=== PATIENT | female | born 1980 | race Caucasian/White ===

== ENCOUNTER 2016-09-11 18:36 | Emergency (ER) | payer OTHER ==
[2016-09-11] MEDS ORDERED: SODIUM CHLORIDE 1,000 ML IV STA ×2 (18:57→22:23)
[2016-09-11] MEDS ORDERED: FAMOTIDINE 20 MG/50 ML IVPB 50 ML IVPB ONE ×2 (18:58→19:52)
[2016-09-11] MEDS ORDERED: ONDANSETRON 4 MG/2 ML VIAL IVPUSH ONE ×2 (18:58→22:54)
--- NOTE | 2016-09-11 19:26 | PDOC ---
History of Present Illness - General History Source: Patient, Old Records Exam Limitations: No Limitations - History of Present Illness Initial Comments: 09/11/16 22:05 The patient is a 36 year old female, with a significant past medical history of asthma, HTN, pancreatitis, obesity s/p gastric sleeve and s/p recent cholecystectomy, who presents to the emergency department with lower abdominal pain and lower back pain for the past week. She reports that her abdominal pain is worst right after eating and reports associated nausea, vomiting and diarrhea. She reports 2 days of nausea/vomiting and 3-4 episodes of diarrhea per day for the past couple of days. She reports that her lower back pain is constant.The patient reports a recent cholecystectomy (08/07/2016) and states that since her surgery, she has not felt well. She reports a decreased appetite since her cholecystectomy and reports that she hasn't eaten today. The patient denies any fever, chills, constipation or dysuria. Boyfriend, daughter are with the patient in the ED. Allergies: NKDA. Past Surgical History: Gastric Sleeve; Cholecystectomy Social History: Non smoker. Denies alcohol or drug use. PCP: Dr. Marie Surgeon: Dr. Carrero <Sindy Pierre - Last Filed: 09/12/16 02:12> <Brice Singh - Last Filed: 09/12/16 02:31> - General Chief Complaint: Shortness of Breath Stated Complaint: SOB Time Seen by Provider: 09/11/16 18:39 Past History <Sindy Pierre - Last Filed: 09/12/16 02:12> - Past Medical History Anemia: No Asthma: Yes Cancer: No Cardiac Disorders: No CVA: No COPD: No CHF: No Dementia: No Diabetes: No GI Disorders: Yes (PANCREATITIS) Disorders: No HTN: Yes Hypercholesterolemia: No Liver Disease: No Seizures: No Thyroid Disease: No - Surgical History Abdominal Surgery: Yes (Gastric Sleeve . Stomach hematoma) Appendectomy: No Cardiac Surgery: No Cholecystectomy: No Lung Surgery: No Neurologic Surgery: No Orthopedic Surgery: No - Psycho/Social/Smoking Cessation Hx Anxiety: No Suicidal Ideation: No Smoking Status: No Smoking History: Never smoked Have you smoked in the past 12 months: No Number of Cigarettes Smoked Daily: 0 Hx Alcohol Use: No Drug/Substance Use Hx: No Substance Use Type: None Hx Substance Use Treatment: No <Brice Singh - Last Filed: 09/12/16 02:31> - Past Medical History Allergies/Adverse Reactions: Allergies Allergy/AdvReac Type Severity Reaction Status Date / Time egg Allergy Severe Itching Verified 09/11/16 20:23 peanut Allergy Severe ANAPHYLAXIS Verified 09/11/16 20:23 shellfish derived Allergy Severe ANAPHYLAXIS Verified 09/11/16 20:23 tree nut Allergy Severe Verified 09/11/16 20:23 almond oil Allergy Unknown Verified 09/11/16 20:23 apple Allergy Unknown Itching Verified 09/11/16 20:23 banana Allergy Unknown Itching Verified 09/11/16 20:23 melon Allergy Unknown Verified 09/11/16 20:23 sesame seed Allergy Unknown Hives Verified 09/11/16 20:23 strawberry Allergy Unknown Itching Verified 09/11/16 20:23 tomato Allergy Unknown Verified 09/11/16 20:23 wheat Allergy Unknown Verified 09/11/16 20:23 No Known Drug Allergies Allergy Verified 09/11/16 20:23 jimenez Allergy Unknown Itching Uncoded 09/11/16 20:23 Home Medications: Ambulatory Orders Famotidine [Pepcid -] 20 mg PO BID #60 tablet 04/07/16 Oxycodone HCl/Acetaminophen [Percocet 5-325 mg Tablet] 1 - 2 tab PO Q6H #28 tab MDD 4 08/07/16 Oxycodone HCl/Acetaminophen [Percocet 5-325 mg Tablet] 1 tab PO Q6H #20 tablet MDD 4 09/12/16 Review of Systems - Review of Systems Able to Perform ROS?: Yes Comments:: 09/11/16 20:20 CONSTITUTIONAL: +Decreased appetite. No fever, no chills, no fatigue EYES: No visual changes ENT: No ear pain, no sore throat CARDIOVASCULAR: No chest pain, no palpitations RESPIRATORY: No cough, no SOB GI: +Abdominal pain, nausea, vomiting, diarrhea. No constipation. GENITOURINARY: No dysuria, no frequency, no hematuria MUSCULOSKELETAL: +Back pain. No joint pain, no myalgias SKIN: No rash NEURO: No headache <FreestoneSindy rios - Last Filed: 09/12/16 02:12> *Physical Exam - Vital Signs Last Vital Signs Temp Pulse Resp BP Pulse Ox 98.9 F 97 H 24 119/49 99 09/11/16 18:44 09/11/16 18:44 09/11/16 18:44 09/11/16 18:44 09/11/16 18:44 - Physical Exam Comments: 09/11/16 21:57 CONSTITUTIONAL: Well-appearing; well-nourished; in no apparent distress. HEAD: Normocephalic; atraumatic. EYES: PERRL; EOM intact. No scleral icterus. Conjunctiva are pink. ENMT: Dry mucous membranes. External appears normal; normal oropharynx. NECK: Supple; non-tender; no cervical lymphadenopathy. CARD: Normal S1, S2; no murmurs, rubs, or gallops. RESP: Normal chest excursion with respiration; breath sounds clear and equal bilaterally; no wheezes, rhonchi, or rales. ABD: Epigastric and LUQ tenderness. Mild periumbilical tenderness. No guarding, no rebound. Soft, non-distended; no palpable organomegaly, no palpable hernias. EXT: Normal ROM in all four extremities; non-tender to palpation; distal pulses intact. SKIN: Warm, dry, no rash. NEURO: No focal neurological deficiencies. <Sindy Pierre - Last Filed: 09/12/16 02:12> - Vital Signs Last Vital Signs Temp Pulse Resp BP Pulse Ox 98.9 F 97 H 24 119/49 99 09/11/16 18:44 09/11/16 18:44 09/11/16 18:44 09/11/16 18:44 09/11/16 18:44 <Brice Singh - Last Filed: 09/12/16 02:31> Heart Score/ECG Review #1 ECG reviewed & interpreted by me at: 20:02 (Vent Rate: 81 bpm. Normal sinus rhythm with sinus arrhythmia.) <Sindy Pierre - Last Filed: 09/12/16 02:12> ED Treatment Course - LABORATORY CBC & Chemistry Diagram: 09/11/16 19:25 09/11/16 19:25 - ADDITIONAL ORDERS Additional order review: Laboratory Results 09/11/16 19:25 Urine HCG, Qual Negative <Sindy Pierre - Last Filed: 09/12/16 02:12> - LABORATORY CBC & Chemistry Diagram: 09/11/16 19:25 09/11/16 19:25 <Brice Singh - Last Filed: 09/12/16 02:31> Medical Decision Making - Medical Decision Making 09/12/16 01:34 EXAM: CT/ABDOMEN & PELVIS W/O CONTR Reviewed By: Dr. Lloyd Pza IMPRESSION: Interval cholecystectomy. Trace R >L pleural effusion. No acute abdominal pelvic abnormality since comparison exam. Remainder of the findings as described. Called Dr. Brayan Carrero at at 02:00. Awaiting callback. <Sindy Pierre - Last Filed: 09/12/16 02:12> - Medical Decision Making 09/11/16 22:13 Patient is a 36-year-old female with history of gastric sleeve and cholecystectomy who presents with epigastric and left upper quadrant abdominal pain, vomiting and numerous episodes of loose watery stools. Differential diagnoses includes dumping syndrome versus gastroenteritis versus colitis. Will aggressively hydrate, we'll administer antiemetics and H2 blockers. We'll administer parenteral pain medication; will obtain CT that and pelvis with by mouth contrast. Will reassess. 09/12/16 01:55 Patient reassessed. Patient is awake and alert, tolerates by mouth. Patient continues to complain of mild abdominal and moderate lower back pain. CBC/CMP/ UA within normal limit. CT of abdomen and pelvis with by mouth contrast reveals trace bilateral pleural effusions, improving stranding near the suture margins of the gastric sleeve small left paraovarian cyst which is unchanged from previous, small right ovarian cyst which is also unchanged and trace free pelvic fluid which appears within normal limits. Patient will be discharged with Nexium which has been provided by Dr. Carrero of surgery, Reglan and Percocet with GI follow-up. <Brice Singh - Last Filed: 09/12/16 02:31> *DC/Admit/Observation/Transfer - Attestations Scribe Attestion: 09/11/16 19:59 Documentation prepared by Sindy Pierre, acting as medical center director for Brice Singh MD. <Sindy Pierre - Last Filed: 09/12/16 02:12> - Attestations Physician Attestion: 09/11/16 22:09 The documentation was prepared by the scribe under my direct supervision. I have reviewed the documentation which correctly represents the findings, medical decision-making and critical action taken by me. <Brice Singh - Last Filed: 09/12/16 02:31> Diagnosis at time of Disposition: Nausea & vomiting Qualifiers: Vomiting type: unspecified Vomiting Intractability: non-intractable Qualified Code(s): R11.2 - Nausea with vomiting, unspecified Abdominal pain Qualifiers: Abdominal location: generalized Qualified Code(s): R10.84 - Generalized abdominal pain Back pain Qualifiers: Back pain location: low back pain Chronicity: chronic Back pain laterality: unspecified Sciatica presence: without sciatica Qualified Code(s): M54.5 - Low back pain; G89.29 - Other chronic pain - Discharge Dispostion Disposition: HOME Condition at time of disposition: Stable - Referrals Referrals: Slim Marie MD [Primary Care Provider] - Siddharth Humphrey MD [Staff Physician] - Brayan Carrero MD [Staff Physician] - - Patient Instructions Printed Discharge Instructions: DI for Low Back Pain, DI for Abdominal Pain- Adult, Nausea and Vomiting-Adult
[2016-09-11 19:30] VITALS: TEMP 98.9; BMI 29.9
[2016-09-11] MEDS ORDERED: HYDROmorphone HCL CARPU-JECT 1 MG/1 ML DISP.SYRIN IVPUSH ONE (19:38)
[2016-09-11] MEDS ORDERED: HYDROmorphone HCL CARPU-JECT 1 MG/1 ML DISP.SYRIN ONE ×2 (19:51→22:12)
[2016-09-11] MEDS ORDERED: ONDANSETRON 4 MG/2 ML VIAL ONE ×2 (19:52→22:55)
[2016-09-11 19:57] LABS: URINE APPEARANCE SLCLOUDY; URINE BILIRUBIN NEGATIVE (NEGATIVE); URINE BLOOD NEGATIVE (NEGATIVE); URINE COLOR DKYELLOW; URINE GLUCOSE (UA) NEGATIVE (NEGATIVE); URINE KETONE 1+ (NEGATIVE); URINE LEUK ESTERASE NEGATIVE (NEGATIVE); URINE NITRITE NEGATIVE (NEGATIVE); URINE PROTEIN NEGATIVE (NEGATIVE); URINE UROBILINOGEN NEGATIVE E.U./dl (0.2-1.0)
[2016-09-11 20:13] LABS: INR 1.19 (0.82-1.09); PROTHROMBIN TIME (PATIENT) 13.1 SEC (9.98-11.88)
[2016-09-11 20:40] LABS: ALBUMIN 4.2 g/dl (3.4-5.0); ANION GAP 8 (8-16); BILIRUBIN,TOTAL 0.4 mg/dL (0.2-1.0); CALCIUM 9.4 mg/dL (8.5-10.1); CO2 28 mmol/L (21-32); CREATININE 0.7 mg/dL (0.55-1.02); GLUCOSE,RANDOM 76 mg/dL (74-106); SGOT/AST 14 U/L (15-37); SGPT/ALT 22 U/L (12-78); TOT PROT 7.5 g/dl (6.4-8.2)
[2016-09-11 20:41] LABS: ALK PHOS 54 U/L (45-117)
[2016-09-11 21:06] LABS: BASOPHIL 0.4 % (0-2.0); EOSINOPHIL 1.6 % (0-4.5); MEAN CELL VOLUME 87.5 fl (80-96); MEAN PLT VOLUME 8.7 fl (7.5-11.1); NEUTROPHILS 52.5 % (42.8-82.8); PLATELET COUNT 416 K/MM3 (134-434); RDW 13.7 % (11.6-15.6); WHITE BLOOD COUNT 8.5 K/mm3 (4.0-10.0)
[2016-09-11] MEDS ORDERED: HYDROmorphone HCL CARPU-JECT 1 MG/1 ML DISP.SYRIN IVPB ONE (22:22)
[2016-09-12 00:48] VITALS: BP 117/68; PULSE 77
--- NOTE | 2016-09-12 11:43 | EKG ---
Test Reason : Blood Pressure : / mmHG Vent. Rate : 081 BPM Atrial Rate : 081 BPM P-R Int : 156 ms QRS Dur : 080 ms QT Int : 392 ms P-R-T Axes : 048 042 017 degrees QTc Int : 455 ms POOR DATA QUALITY, INTERPRETATION MAY BE ADVERSELY AFFECTED NORMAL SINUS RHYTHM WITH SINUS ARRHYTHMIA NORMAL ECG WHEN COMPARED WITH ECG OF 02-JUN-2016 15:27, NO SIGNIFICANT CHANGE WAS FOUND Confirmed by JYOTI TUBBS MD ([id number]) on 09/12/2016 11:42:44 AM Referred By: Confirmed By:JYOTI TUBBS MD
== END 2016-09-12 03:08 | disposition home or self-care (01) ==
LOC: JER 18:36
PROC: 3E033NZ Introduction of Analgesics, Hypnotics, Sedatives into Peripheral Vein, Percutaneous Approach (ICD-10-PCS; principal; 2016-09-11)
PROC: 3E033GC Introduction of Other Therapeutic Substance into Peripheral Vein, Percutaneous Approach (ICD-10-PCS; 2016-09-11)
DX: R10.84 Generalized abdominal pain (principal); G89.29 Other chronic pain; Z98.84 Bariatric surgery status
CPT/HCPCS: 36415; 74176-TC; 80053; 81003; 83690; 83735; 84703; 85025; 85610; 87086; 93005; 93010; 99284-25

== ENCOUNTER 2016-09-22 07:23 | Day surgery (SDC) | payer OTHER ==
[2016-09-19 14:24] VITALS: BMI 29.9
[2016-09-22] MEDS ORDERED: LIDOCAINE HCL/PF 1% SDV 5ML VIAL ONE (08:44)
[2016-09-22] MEDS ORDERED: PROPOFOL 20 ML ONE (08:44)
[2016-09-22 10:01] VITALS: TEMP 98.4
[2016-09-22 10:03] VITALS: BP 126/73
[2016-09-22 11:08] LABS: INR 1.22 (0.82-1.09); PROTHROMBIN TIME (PATIENT) 13.5 SEC (9.98-11.88)
[2016-09-22 11:42] VITALS: PULSE 72
--- NOTE | 2016-09-23 12:15 | PATH ---
Surgical Pathology Report Patient Name: ALEX MILLS [facility]. Rec. #: [id number] /Age/Gender: 1980 (Age: 36) / F Account: [id number] Location: U-ENDOSCOPY Taken: 09/22/2016 Received: 09/22/2016 Reported: 09/23/2016 Physicians: Siddharth Humphrey M.D. Specimen(s) Received A: BX DUODENUM B: BX GE JUNCTION Clinical History Postoperative abdominal pain Hiatal hernia, scalloped folds, GERD with esophagitis, rule out duodenal atrophy Final Diagnosis A. DUODENUM, BIOPSY: DUODENAL MUCOSA WITH NO PATHOLOGIC CHANGES. NO HISTOLOGIC EVIDENCE OF GLUTEN SENSITIVE ENTEROPATHY (CELIAC SPRUE) IDENTIFIED. B. GE JUNCTION, BIOPSY: SQUAMOUS AND GASTRIC MUCOSA WITH ACUTE AND CHRONIC INFLAMMATION. NO INTESTINAL METAPLASIA IDENTIFIED (NO LITTLE'S IDENTIFIED). Electronically Signed Jackson Coronel M.D. Gross Description A. Received in formalin, labeled "biopsy duodenum" is a hernandez, irregular portion of soft tissue measuring 0.4 cm. in greatest dimension. The specimen is submitted in toto in one cassette. B. Received in formalin, labeled "biopsy GE junction" is a hernandez, irregular portion of soft tissue measuring 0.3 cm. in greatest dimension. The specimen is submitted in toto in one cassette. 09/22/201609/22/2016
== END 2016-09-22 11:00 | disposition home or self-care (01) ==
LOC: JASU-ENDO 07:23
PROVIDERS: ATTEND Internal Medicine Gastroenterology
PROC: 0DB38ZX Excision of Lower Esophagus, Via Natural or Artificial Opening Endoscopic, Diagnostic (ICD-10-PCS; principal; 2016-09-22 08:30)
DX: R10.13 Epigastric pain (principal); R10.84 Generalized abdominal pain; Z98.84 Bariatric surgery status; K44.9 Diaphragmatic hernia without obstruction or gangrene
CPT/HCPCS: 36415; 84703; 85610; 88305-TC

== ENCOUNTER 2016-11-16 16:38 | Emergency (ER) | payer OTHER ==
[2016-11-16 16:44] VITALS: TEMP 98.1; BMI 30.2
[2016-11-16] MEDS ORDERED: morphine CARPU-JECT 4 MG/1 ML DISP.SYRIN IVPUSH ONE (17:43)
[2016-11-16] MEDS ORDERED: ONDANSETRON 4 MG/2 ML VIAL IVPB ONE (17:43)
[2016-11-16] MEDS ORDERED: SODIUM CHLORIDE 1,000 ML IV STA (17:43)
[2016-11-16 17:49] LABS: BASOPHIL 0.3 % (0-2.0); EOSINOPHIL 0.3 % (0-4.5); MCH 29.3 pg (25.7-33.7); MCHC 33.3 g/dl (32.0-36.0); MEAN CELL VOLUME 87.9 fl (80-96); MEAN PLT VOLUME 7.8 fl (7.5-11.1); NEUTROPHILS 75.6 % (42.8-82.8); PLATELET COUNT 380 K/MM3 (134-434); RDW 13.5 % (11.6-15.6); WHITE BLOOD COUNT 9.3 K/mm3 (4.0-10.0)
[2016-11-16] MEDS ORDERED: METOCLOPRAMIDE HCL INJECTION 10 MG/2 ML VIAL ONE (17:51)
[2016-11-16] MEDS ORDERED: KETOROLAC TROMETHAMINE 30 MG/1 ML VIAL ONE (17:51)
[2016-11-16 17:56] LABS: URINE APPEARANCE CLOUDY; URINE BILIRUBIN NEGATIVE (NEGATIVE); URINE BLOOD NEGATIVE (NEGATIVE); URINE COLOR YELLOW; URINE GLUCOSE (UA) NEGATIVE (NEGATIVE); URINE KETONE NEGATIVE (NEGATIVE); URINE LEUK ESTERASE NEGATIVE (NEGATIVE); URINE NITRITE NEGATIVE (NEGATIVE); URINE PROTEIN NEGATIVE (NEGATIVE); URINE UROBILINOGEN NEGATIVE E.U./dl (0.2-1.0)
--- NOTE | 2016-11-16 17:57 | PDOC ---
History of Present Illness <Isabelle Mckinley - Last Filed: 11/16/16 21:34> - General History Source: Patient Exam Limitations: No Limitations - History of Present Illness Initial Comments: 11/16/16 18:22 My chief complaint: Severe headache right sided temporal area, nausea, vomiting , diarrhea and generalized body aches today History of present illness: Patient is a 36-year-old female with a history of asthma, hypertension and spent controlled since having a gastric sleeve 8 2015, history of pancreatitis, and hiatal hernia, and herniated lumbar disc. Patient reports that she took cyclobenzaprine for the first time and lower back pain. Patient reports that today she started to have a headache that was left temporal area that I transfer to the right temporal area in his throat presently and is currently a 10 out of 10 throbbing & pounding. Reports that she 's had multiple episodes of vomiting today up to 7 times and also diarrhea light brown at least 3 times and generalized body aches. Patient reports having slight nausea presently, no abdominal pain presently. Reports that she is up-to- date with immunizations did not have influenza vaccine due to allergies to eggs. Patient reports that her daughter had been sick recently with uvular swelling that was not strep in nature. He has had no recent travel. Pt. has a migraine for 2 years and reports that she never has diarrhea with migraine just vomiting. 11/16/16 18:31 11/16/16 19:16 Timing/Duration: getting worse Severity: severe (headache rt. temporal area ) Associated Symptoms: reports: headaches (right temporal ), nausea/vomiting ( multiple times today along with diarrhea) <Poly Roman - Last Filed: 11/18/16 19:49> - General Chief Complaint: Vomiting/Diarrhea Stated Complaint: HEADACHE VOMITING/DIARRHEA Time Seen by Provider: 11/16/16 17:34 Past History <Isabelle Mckinley - Last Filed: 11/16/16 21:34> - Past Medical History Anemia: No Asthma: Yes (NO RECENT ATTACK) Cancer: No Cardiac Disorders: No CVA: No COPD: No CHF: No Dementia: No Diabetes: No GI Disorders: Yes (PANCREATITIS) Disorders: No HTN: Yes (UNDER CONTROL POST SURGERY) Hypercholesterolemia: No Liver Disease: No Seizures: No Thyroid Disease: No - Surgical History Abdominal Surgery: Yes (Gastric Sleeve . Stomach hematoma) Appendectomy: No Cardiac Surgery: No Cholecystectomy: Yes Lung Surgery: No Neurologic Surgery: No Orthopedic Surgery: No - Psycho/Social/Smoking Cessation Hx Anxiety: No Suicidal Ideation: No Smoking Status: No Smoking History: Never smoked Have you smoked in the past 12 months: No Number of Cigarettes Smoked Daily: 0 Hx Alcohol Use: No Drug/Substance Use Hx: No Substance Use Type: None Hx Substance Use Treatment: No <Poly Roman - Last Filed: 11/18/16 19:49> - Past Medical History Allergies/Adverse Reactions: Allergies Allergy/AdvReac Type Severity Reaction Status Date / Time egg Allergy Severe Itching Verified 11/16/16 16:40 peanut Allergy Severe ANAPHYLAXIS Verified 11/16/16 16:40 shellfish derived Allergy Severe ANAPHYLAXIS Verified 11/16/16 16:40 tree nut Allergy Severe Verified 11/16/16 16:40 almond oil Allergy Unknown Verified 11/16/16 16:40 apple Allergy Unknown Itching Verified 11/16/16 16:40 banana Allergy Unknown Itching Verified 11/16/16 16:40 melon Allergy Unknown Verified 11/16/16 16:40 sesame seed Allergy Unknown Hives Verified 11/16/16 16:40 strawberry Allergy Unknown Itching Verified 11/16/16 16:40 tomato Allergy Unknown Verified 11/16/16 16:40 wheat Allergy Unknown Verified 11/16/16 16:40 NSAIDS (Non-Steroidal AdvReac Severe Verified 11/16/16 16:42 Anti-Inflamma jimenez Allergy Unknown Itching Uncoded 11/16/16 16:40 Home Medications: Ambulatory Orders Calcium Carbonate/Vitamin D3 [Calcium 500 + Vit D Caplet] 1 each PO DAILY Cholecalciferol (Vitamin D3) [Vitamin D -] 50,000 unit PO WEEKLY 09/19/16 Esomeprazole Magnesium [Nexium 24Hr] 20 mg PO DAILY 09/19/16 Ferrous Gluconate [Iron] 256 mg PO DAILY 09/19/16 Metoclopramide HCl [Reglan] 10 mg PO DAILY 09/19/16 Multivitamin with Minerals [Icaps Plus] 1 each PO DAILY 09/19/16 Vitamin B Complex 1 each PO DAILY 09/19/16 Butalbit/Acetamin/Caff/Codeine [Fioricet-Cod 36-314-61-30 Cap] 1 - 2 each PO Q4H PRN #30 capsule MDD 6 capsules 11/16/16 Ondansetron [Zofran Odt -] 4 mg SL Q6H PRN #20 od.tablet 11/16/16 Review of Systems - Review of Systems Able to Perform ROS?: Yes Constitutional: Yes: Loss of Appetite HEENTM: No: Symptoms Reported Respiratory: No: Symptoms reported Cardiac (ROS): No: Symptoms Reported ABD/GI: Yes: Diarrhea (light brown watery up to 3 times), Nausea, Vomiting ( today multiple times up to 7 ) : No: Symptoms Reported Musculoskeletal: Yes: Other (generalized bodyaches n) Integumentary: No: Symptoms Reported Neurological: Yes: Headache (right temporal today now \) <Poly Roman - Last Filed: 11/18/16 19:49> *Physical Exam - Vital Signs Last Vital Signs Temp Pulse Resp BP Pulse Ox 98.1 F 94 H 19 135/90 100 11/16/16 16:40 11/16/16 16:40 11/16/16 16:40 11/16/16 16:40 11/16/16 16:40 <Isabelle Mckinley - Last Filed: 11/16/16 21:34> - Vital Signs Last Vital Signs Temp Pulse Resp BP Pulse Ox 98.1 F 94 H 19 135/90 100 11/16/16 16:40 11/16/16 16:40 11/16/16 16:40 11/16/16 16:40 11/16/16 16:40 - Physical Exam General Appearance: Yes: Appropriately Dressed HEENT: positive: EOMI, GHULAM, Normal ENT Inspection Neck: negative: Lymphadenopathy (R), Lymphadenopathy (L) Respiratory/Chest: positive: Lungs Clear, Normal Breath Sounds. negative: Chest Tender, Respiratory Distress Cardiovascular: positive: Regular Rhythm, Regular Rate, S1, S2 Gastrointestinal/Abdominal: positive: Normal Bowel Sounds. negative: Tender, Soft, Organomegaly, Distended, Guarding, Rebound, Tenderness, Hepatomegaly, Spleenomegaly Integumentary: positive: Normal Color Neurologic: positive: ediphone operator II-XII NML intact (grossly intact), Fully Oriented, Alert, Normal Response, Respond to painful stimul, Responsive. negative: Numbness, Sensory Deficit <Poly Roman - Last Filed: 11/18/16 19:49> ED Treatment Course - LABORATORY CBC & Chemistry Diagram: 11/16/16 17:40 11/16/16 17:40 - ADDITIONAL ORDERS Additional order review: Laboratory Results 11/16/16 11/16/16 11/16/16 17:45 17:40 17:40 INR 1.12 Sodium 139 Potassium 4.7 Chloride 102 Carbon Dioxide 28 Anion Gap 9 BUN 7 D Creatinine 0.6 Creat Clearance w eGFR > 60 Random Glucose 94 D Calcium 9.3 Total Bilirubin 0.3 D AST 13 L ALT 13 D Alkaline Phosphatase 65 D Total Protein 7.4 Albumin 3.9 Lipase 73 Urine Color Yellow Urine Appearance Cloudy Urine pH 7.0 D Ur Specific [place] 1.018 Urine Protein Negative Urine Glucose (UA) Negative Urine Ketones Negative Urine Blood Negative Urine Nitrite Negative Urine Bilirubin Negative Urine Urobilinogen Negative Ur Leukocyte Esterase Negative Urine HCG, Qual Negative 11/16/16 18:00 Influenza Types A,B Antigen (CHANTELL) - Final Nasopharyngeal Swab - Final 11/16/16 17:40 RBC 4.51 MCV 87.9 MCHC 33.3 RDW 13.5 MPV 7.8 D Neutrophils % 75.6 D Lymphocytes % 18.0 D Monocytes % 5.8 Eosinophils % 0.3 D Basophils % 0.3 - Medications Given in the ED: ED Medications Discontinued Medications Generic Name Dose Route Start Last Admin Trade Name Toyq PRN Reason Stop Dose Admin Sodium Chloride 1,000 mls @ 1,000 mls/hr 11/16/16 17:43 11/16/16 18:10 Normal Saline - IV 11/16/16 18:42 1,000 mls/hr ASDIR STA Administration Metoclopramide HCl 10 mg 11/16/16 18:12 11/16/16 18:18 Reglan Injection - IVPB 11/16/16 18:13 10 mg ONCE ONE Administration Morphine Sulfate 4 mg 11/16/16 17:43 11/16/16 18:15 Morphine Injection - IVPUSH 11/16/16 17:44 4 mg ONCE ONE Administration Ondansetron HCl 4 mg 11/16/16 17:43 11/16/16 18:10 Zofran Injection IVPB 11/16/16 17:44 4 mg ONCE ONE Administration <Isabelle Mckinley D - Last Filed: 11/16/16 21:34> - LABORATORY CBC & Chemistry Diagram: 11/16/16 17:40 11/16/16 17:40 - ADDITIONAL ORDERS Additional order review: 11/16/16 17:40 RBC 4.51 MCV 87.9 MCHC 33.3 RDW 13.5 MPV 7.8 D Neutrophils % 75.6 D Lymphocytes % 18.0 D Monocytes % 5.8 Eosinophils % 0.3 D Basophils % 0.3 <Poly Roman - Last Filed: 11/18/16 19:49> Medical Decision Making - Medical Decision Making Patient is a 36-year-old female with a history of asthma, hypertension and spent controlled since having a gastric sleeve 8 2015, history of pancreatitis, and hiatal hernia, and herniated lumbar disc. Patient reports that she took cyclobenzaprine for the first time and lower back pain. Patient reports that today she started to have a headache that was left temporal area that I transfer to the right temporal area in his throat presently and is currently a 10 out of 10 throbbing & pounding. Reports that she's had multiple episodes of vomiting today up to 7 times and also diarrhea light brown at least 3 times and generalized body aches. Patient reports having slight nausea presently, no abdominal pain presently. Reports that she is up-to-date with immunizations did not have influenza vaccine due to allergies to eggs. Patient reports that her daughter had been sick recently with uvular swelling that was not strep in nature. He has had no recent travel. Differential migraine r/o cranial abnormality r/o influenza A or B 11/16/16 18:14 PLAN: cbc with diff cmp lipase ua urine hcg negative morphine 4 mg iv PB reglan 10 mg IVBPB zofran [address] of head with out contrast influenza A or B rapid negative Laboratory Tests 11/16/16 11/16/16 17:40 17:45 WBC 9.3 RBC 4.51 Hgb 13.2 Hct 39.7 MCV 87.9 MCHC 33.3 RDW 13.5 Plt Count 380 MPV 7.8 D Neutrophils % 75.6 D Lymphocytes % 18.0 D Monocytes % 5.8 Eosinophils % 0.3 D Basophils % 0.3 Urine Color Yellow Urine Appearance Cloudy Urine pH 7.0 D Ur Specific [place] 1.018 Urine Protein Negative Urine Glucose (UA) Negative Urine Ketones Negative Urine Blood Negative Urine Nitrite Negative Urine Bilirubin Negative Urine Urobilinogen Negative Ur Leukocyte Esterase Negative Urine HCG, Qual Negative 11/16/16 18:26 11/16/16 18:28 11/16/16 18:29 11/16/16 19:17 Laboratory Tests 11/16/16 11/16/16 17:40 17:40 INR 1.12 Sodium 139 Potassium 4.7 Chloride 102 Carbon Dioxide 28 Anion Gap 9 BUN 7 D Creatinine 0.6 Creat Clearance w eGFR > 60 Random Glucose 94 D Calcium 9.3 Total Bilirubin 0.3 D AST 13 L ALT 13 D Alkaline Phosphatase 65 D Total Protein 7.4 Albumin 3.9 Lipase 73 11/16/16 19:18 11/16/16 19:19 11/16/16 19:19 case signed out to GERRY Mckinley 11/18/16 19:47 11/18/16 19:47 <Poly Roman - Last Filed: 11/18/16 19:49> *DC/Admit/Observation/Transfer - Discharge Dispostion Admit: No <Isabelle Mckinley - Last Filed: 11/16/16 21:34> <Poly Roman - Last Filed: 11/18/16 19:49> Diagnosis at time of Disposition: Migraine headache Qualifiers: Migraine type: without aura Status migrainosus presence: without status migrainosus Intractability: not intractable Qualified Code(s): G43.009 - Migraine without aura, not intractable, without status migrainosus - Discharge Dispostion Disposition: HOME - Prescriptions Prescriptions: Butalbit/Acetamin/Caff/Codeine [Fioricet-Cod 53-895-00-30 Cap] 1 - 2 each PO Q4H PRN #30 capsule MDD 6 capsules PRN Reason: Severe Headache Ondansetron [Zofran Odt -] 4 mg SL Q6H PRN #20 od.tablet PRN Reason: Nausea - Referrals Referrals: Slim Marie MD [Primary Care Provider] - Uzma Calle MD [Staff Physician] - - Patient Instructions Printed Discharge Instructions: Migraine -- Adult, Migraine Headaches ( Alternative Therapy), Migraine Headaches (Alternative Therapy), DI for Migraine Additional Instructions: FOLLOW UP WITH DR. CALLE (NEUROLOGY) THIS WEEK FOR FURTHER EVALUATION. CALL TO SCHEDULE APPOINTMENT. TAKE MEDICATIONS PRESCRIBED. DO NOT DRIVE, DRINK ALCOHOL, OR OPERATE HEAVY MACHINERY WHILE TAKING FIORICET. RETURN IF SYMPTOMS WORSEN, OR ANY OTHER CONCERNS FOR FURTHER EVALUATION. Print Language: SERBIAN - Post Discharge Activity Work/School Note: Back to Work
[2016-11-16] MEDS ORDERED: ONDANSETRON 4 MG/2 ML VIAL ONE (17:59)
[2016-11-16] MEDS ORDERED: morphine CARPU-JECT 4 MG/1 ML DISP.SYRIN ONE (18:11)
[2016-11-16 18:12] LABS: INR 1.12 (0.82-1.09); PROTHROMBIN TIME (PATIENT) 12.4 SEC (9.98-11.88)
[2016-11-16] MEDS ORDERED: METOCLOPRAMIDE HCL INJECTION 10 MG/2 ML VIAL IVPB ONE (18:12)
[2016-11-16 18:19] LABS: ALBUMIN 3.9 g/dl (3.4-5.0); ANION GAP 9 (8-16); BILIRUBIN,TOTAL 0.3 mg/dL (0.2-1.0); CALCIUM 9.3 mg/dL (8.5-10.1); CO2 28 mmol/L (21-32); CREATININE 0.6 mg/dL (0.55-1.02); GLUCOSE,RANDOM 94 mg/dL (74-106); SGPT/ALT 13 U/L (12-78); TOT PROT 7.4 g/dl (6.4-8.2)
[2016-11-16 18:20] LABS: ALK PHOS 65 U/L (45-117)
[2016-11-16 18:35] LABS: SGOT/AST 13 U/L (15-37)
[2016-11-16 22:15] VITALS: BP 128/82; PULSE 85
== END 2016-11-16 22:54 | disposition home or self-care (01) ==
LOC: JER 16:38
PROC: 3E033GC Introduction of Other Therapeutic Substance into Peripheral Vein, Percutaneous Approach (ICD-10-PCS; principal; 2016-11-16)
PROC: 3E033GC Introduction of Other Therapeutic Substance into Peripheral Vein, Percutaneous Approach (ICD-10-PCS; 2016-11-16)
DX: I10 Essential (primary) hypertension (principal); J45.909 Unspecified asthma, uncomplicated; Z98.84 Bariatric surgery status
CPT/HCPCS: 36415; 70450-TC; 80053; 81003; 83690; 84703; 85025; 85610; 87804; 96374; 96375; 99283-25

== ENCOUNTER 2017-04-27 08:04 | Day surgery (SDC) | payer OTHER ==
[2017-04-27 08:25] VITALS: BMI 29.9
[2017-04-27 09:39] VITALS: TEMP 97.8
[2017-04-27] MEDS ORDERED: PROPOFOL 20 ML ONE ×2 (09:51)
[2017-04-27] MEDS ORDERED: LIDOCAINE HCL/PF 2% SDV 5ML VIAL ONE (09:51)
[2017-04-27 10:54] VITALS: BP 108/57; PULSE 74
--- NOTE | 2017-04-28 12:31 | PATH ---
Surgical Pathology Report Patient Name: ALEX MILLS [facility]. Rec. #: [id number] /Age/Gender: 1980 (Age: 37) / F Account: [id number] Location: U-ENDOSCOPY Taken: 04/27/2017 Received: 04/27/2017 Reported: 04/28/2017 Physicians: Siddharth Humphrey M.D. Specimen(s) Received POLYP SIGMOID Clinical History History of adenomatous colon polyp Sigmoid polyp, hemorrhoids Final Diagnosis COLON, SIGMOID, BIOPSY: HYPERPLASTIC POLYP. Electronically Signed Jackson Coronel M.D. Gross Description Received in formalin, labeled "sigmoid colon polyp" are 4 hernandez, irregular portions of soft tissue averaging 0.2 cm. in greatest dimension. The specimens are submitted in toto in one cassette. 04/27/201704/27/2017
== END 2017-04-27 10:54 | disposition home or self-care (01) ==
LOC: JASU-ENDO 08:04
PROVIDERS: ATTEND Internal Medicine Gastroenterology
PROC: 0DBN8ZX Excision of Sigmoid Colon, Via Natural or Artificial Opening Endoscopic, Diagnostic (ICD-10-PCS; principal; 2017-04-27 09:00)
DX: Z12.11 Encounter for screening for malignant neoplasm of colon (principal); Z86.010 Personal history of colon polyps; K63.5 Polyp of colon; K64.8 Other hemorrhoids
CPT/HCPCS: 84703; 88305-TC

== ENCOUNTER 2018-01-27 09:48 | Day surgery (SDC) | payer OTHER ==
[2018-01-26 15:09] VITALS: BMI 31.2
[2018-01-27 10:37] LABS: HEMATOCRIT 33.8 % (32.4-45.2); HEMOGLOBIN 11.4 GM/dL (10.7-15.3); MCH 29.8 pg (25.7-33.7); MCHC 33.8 g/dl (32.0-36.0); MEAN CELL VOLUME 88.2 fl (80-96); MEAN PLT VOLUME 7.7 fl (7.5-11.1); PLATELET COUNT 388 K/MM3 (134-434); RBC 3.83 M/mm3 (3.60-5.2); WHITE BLOOD COUNT 6.9 K/mm3 (4.0-10.0)
[2018-01-27 11:00] LABS: ALBUMIN 3.7 g/dl (3.4-5.0); ALK PHOS 48 U/L (45-117); ANION GAP 6 (8-16); BILIRUBIN,TOTAL 0.3 mg/dL (0.2-1.0); BLOOD UREA NITROGEN 7 mg/dL (7-18); CALCIUM 8.5 mg/dL (8.5-10.1); CHLORIDE 105 mmol/L (98-107); CO2 27 mmol/L (21-32); CREATININE 0.6 mg/dL (0.55-1.02); GLUCOSE,RANDOM 80 mg/dL (74-106); SGOT/AST 12 U/L (15-37); SODIUM 138 mmol/L (136-145); TOT PROT 7.1 g/dl (6.4-8.2)
[2018-01-27 12:03] LABS: SGPT/ALT 17 U/L (12-78)
--- NOTE | 2018-01-27 12:19 | HP ---
History & Physical Update - History History: No Change - Physical Physical: No Change - Assessment Assessment: No Change - Plan Plan: No Change (Agree with H&P from 01/16/18 - missed - for suciton D&C )
[2018-01-27] MEDS ORDERED: LACTATED RINGERS SOLUTION 1,000 ML IV SCH (12:30)
[2018-01-27] MEDS ORDERED: SUCCINYLCHOLINE CHLORIDE 200 MG/10 ML VIAL ONE (12:32)
[2018-01-27] MEDS ORDERED: PROPOFOL 20 ML ONE (12:32)
[2018-01-27] MEDS ORDERED: MIDAZOLAM HCL 2 MG/2 ML SINGLE DOSE VIAL ONE (12:33)
[2018-01-27] MEDS ORDERED: ACETAMINOPHEN 325 MG TABLET (FP) PO ONE (13:00)
[2018-01-27] MEDS ORDERED: KETOROLAC TROMETHAMINE 30 MG/1 ML VIAL ONE (13:06)
[2018-01-27] MEDS ORDERED: oxyCODONE HCL 5 MG TABLET PO PRN (13:19)
[2018-01-27] MEDS ORDERED: ONDANSETRON 4 MG/2 ML VIAL IVPUSH PRN (13:19)
--- NOTE | 2018-01-27 13:24 | OP ---
Operative Note - Note: Operative Date: 01/27/18 ([id number] dictation number) Pre-Operative Diagnosis: missed Operation: suction D&C Post-Operative Diagnosis: Same as Pre-op Surgeon: Svetlana Abarca Anesthesia: General Specimens Removed: products of conception Estimated Blood Loss (mls): 25 Operative Report Dictated: Yes
[2018-01-27] MEDS ORDERED: ACETAMINOPHEN 325 MG TABLET (FP) ONE (14:41)
[2018-01-27] MEDS ORDERED: oxyCODONE HCL 5 MG TABLET ONE (15:07)
--- NOTE | 2018-01-27 15:22 | OP ---
DATE OF OPERATION: 01/27/2018 PREOPERATIVE DIAGNOSIS: Missed . POSTOPERATIVE DIAGNOSIS: Missed . PROCEDURE: Suction dilation and curettage. SURGEON: Svetlana Abarca DO AREA PLANT MANAGER: None. ANESTHESIA: General. ESTIMATED BLOOD LOSS: 25 mL COMPLICATIONS: None. SPECIMENS REMOVED: Products of conception. Sponge and instrument count correct at the end of the case. DISPOSITION: Stable to PACU. BRIEF HISTORY AND PROCEDURE: Patient is a 38-year-old female who had been seen in the office with several visits with a positive test. However, on serial ultrasounds and beta hCG levels was diagnosed with a missed . Patient was counseled on her options and she elected to undergo a dilatation and curettage procedure. The patient was admitted to [facility] on January 27, 2018, consent for the procedure was obtained upon admission. The patient was taken back to the operating room where she was placed into the dorsal lithotomy position, given general anesthesia and then a timeout was performed. She was prepped and draped in the usual sterile fashion. The speculum was placed inside the vagina. The cervix was easily visualized and the anterior lip was grasped with the single-tooth tenaculum. The cervix was dilated to accommodate a size 7 suction curette, which was advanced to the fundus. Several passes with the suction curette were completed and then several passes with the sharp curette in multiple hernandez of the uterus were completed until adequate uterine quality was obtained. One final pass of the suction curette was completed. Minimal bleeding was noted from the cervical os. The tenaculum was removed from the cervix, no bleeding was noted from the tenaculum site. All instruments were removed from the vagina. Sponge and instrument counts were reported to be correct. The patient tolerated the procedure well is recovering in the PACU in stable condition at the time of this dictation. SVETLANA ABARCA DO /[id number]
[2018-01-27 16:26] VITALS: BP 119/72; PULSE 85; TEMP 98.7
--- NOTE | 2018-02-01 18:19 | PATH ---
Surgical Pathology Report Patient Name: ALEX MILLS Med. Rec. #: [id number] /Age/Gender: 1980 (Age: 38) / F Account: [id number] Location: [facility] Taken: 01/27/2018 Received: 01/27/2018 Reported: 02/01/2018 Physicians: Svetlana Abarca M.D. Specimen(s) Received PRODUCTS OF CONCEPTION Clinical History Missed Final Diagnosis PRODUCTS OF CONCEPTION, DILATION AND CURETTAGE: IMMATURE CHORIONIC VILLI, DECIDUA, AND GESTATIONAL ENDOMETRIUM CONSISTENT WITH PRODUCTS OF CONCEPTION. CHROMOSOMAL STUDIES ARE PENDING AND WILL BE REPORTED SEPARATELY AN ADDENDUM. SEE COMMENT. Comment: Immunohistochemical stains performed and interpreted at [place], [place] ([id number]) show p57 is focally positive, while proliferative marker Ki-67 is 30%. Overall findings favor hydropic degeneration. Suggest correlation with cytogenetics. Electronically Signed Sonia Ribeiro M.D. Gross Description Received fresh labeled "products of conception," is a 6.5 x 6.0 x 1.0 cm aggregate of hernandez red soft tissue fragments. No definite villous tissue or somatic tissue is identified. A customer sales representative portion is placed in RPMI solution and sent for chromosomal studies. Additional customer sales representative portions are submitted in 3 cassettes for permanent sections. 01/27/201801/27/2018
== END 2018-01-27 16:20 | disposition home or self-care (01) ==
LOC: JASU-SURG 09:48
PROVIDERS: ATTEND Obstetrics & Gynecology
PROC: 10D17ZZ Extraction of Products of Conception, Retained, Via Natural or Artificial Opening (ICD-10-PCS; principal; 2018-01-27 11:15)
DX: O02.1 Missed abortion (principal)
CPT/HCPCS: 36415; 80053; 85027; 86850; 86900; 86901; 88305-TC; 94760

== ENCOUNTER 2018-07-15 07:34 | Day surgery (SDC) | payer OTHER ==
[2018-07-15 08:15] VITALS: BMI 34.4
[2018-07-15 10:41] VITALS: TEMP 98.3
[2018-07-15 11:51] VITALS: BP 130/85; PULSE 74
--- NOTE | 2018-07-19 17:07 | PATH ---
Surgical Pathology Report Patient Name: ALEX MILLS [facility]. Rec. #: [id number] /Age/Gender: 1980 (Age: 38) / F Account: [id number] Location: [facility]-ENDOSCOPY Taken: 07/15/2018 Received: 07/15/2018 Reported: 07/19/2018 Physicians: Juan Alberto Fine M.D. Specimen(s) Received A: BX DUODENUM B: BX BODY C: POLYP INSIDE HIATAL HERNIA Clinical History Epigastric pain, GERD, irritable bowel syndrome Postoperative diagnosis: Mild gastritis, hiatal hernia Final Diagnosis A. DUODENUM, BIOPSY: DUODENAL MUCOSA WITHOUT SIGNIFICANT PATHOLOGIC FINDINGS. B. STOMACH, BODY, BIOPSY: GASTRIC BODY MUCOSA WITH MILD CHRONIC GASTRITIS. IMMUNOHISTOCHEMICAL STAIN FOR H. PYLORI IS NEGATIVE. C. HIATAL HERNIA, POLYP, BIOPSY: POLYPOID GASTRIC CARDIAC TYPE MUCOSA WITH MILD CHRONIC GASTRITIS. IMMUNOHISTOCHEMICAL STAIN FOR H. PYLORI IS NEGATIVE. Electronically Signed Sonia Ribeiro M.D. Gross Description A. Received in formalin, labeled "biopsy duodenum" are 2 hernandez, irregular portions of soft tissue averaging 0.3 cm. in greatest dimension. The specimens are submitted in toto in one cassette. B. Received in formalin, labeled "biopsy body of stomach" are 2 hernandez, irregular portions of soft tissue measuring 0.3 and 0.4 cm. in greatest dimension. The specimens are submitted in toto in one cassette. C. Received in formalin, labeled "biopsy polyp inside hiatal hernia" is a hernandez, irregular portion of soft tissue measuring 0.5 cm. in greatest dimension. The specimen is submitted in toto in one cassette. 07/15/2018 [facility]07/15/2018
== END 2018-07-15 12:22 | disposition home or self-care (01) ==
LOC: JASU-ENDO 07:34
PROVIDERS: ATTEND Internal Medicine Gastroenterology
PROC: 0DB68ZX Excision of Stomach, Via Natural or Artificial Opening Endoscopic, Diagnostic (ICD-10-PCS; principal; 2018-07-15 08:30)
DX: K29.50 Unspecified chronic gastritis without bleeding (principal); K44.9 Diaphragmatic hernia without obstruction or gangrene
CPT/HCPCS: 84703; 88305-TC; 88342-TC

== ENCOUNTER 2018-08-28 14:44 | Emergency (ER) | payer OTHER ==
[2018-08-28 14:53] VITALS: BP 145/100; PULSE 104; TEMP 98.6; BMI 32.1
[2018-08-28] MEDS ORDERED: morphine CARPU-JECT 4 MG/1 ML DISP.SYRIN IVPUSH ONE (18:39)
--- NOTE | 2018-08-28 18:45 | PDOC ---
History of Present Illness - General Chief Complaint: Back Pain Stated Complaint: BACK PAIN Time Seen by Provider: 08/28/18 17:43 History Source: Patient - History of Present Illness Timing/Duration: reports: constant Quality: reports: severe Abdominal Pain Onset Location: reports: generalized abdomen Pain Radiation: reports: back Past History - Past Medical History Allergies/Adverse Reactions: Allergies Allergy/AdvReac Type Severity Reaction Status Date / Time egg Allergy Severe Itching Verified 01/26/18 14:45 peanut Allergy Severe ANAPHYLAXIS Verified 01/26/18 14:45 shellfish derived Allergy Severe ANAPHYLAXIS Verified 01/26/18 14:45 tree nut Allergy Severe Verified 01/26/18 14:45 almond oil Allergy Unknown Verified 01/26/18 14:45 apple Allergy Unknown Itching Verified 01/26/18 14:45 banana Allergy Unknown Itching Verified 01/26/18 14:45 melon Allergy Unknown Verified 01/26/18 14:45 sesame seed Allergy Unknown Hives Verified 01/26/18 14:45 strawberry Allergy Unknown Itching Verified 01/26/18 14:45 tomato Allergy Unknown Verified 01/26/18 14:45 wheat Allergy Unknown Verified 01/26/18 14:45 NSAIDS (Non-Steroidal AdvReac Severe Verified 01/26/18 14:45 Anti-Inflamma jimenez Allergy Unknown Itching Uncoded 12/11/17 17:12 Home Medications: Ambulatory Orders Cholecalciferol (Vitamin D3) [Vitamin D -] 50,000 unit PO WEEKLY 09/19/16 Butalbit/Acetamin/Caff/Codeine [Fioricet-Cod 05-749-52-30 Cap] 1 - 2 each PO Q4H PRN #30 capsule MDD 6 capsules 11/16/16 Albuterol Sulfate Inhaler - [Ventolin HFA Inhaler -] 1 - 2 inh PO Q4H PRN Diphenhydramine HCl [Benadryl Capsule -] 25 mg PO Q6H PRN 04/27/17 Cetirizine HCl [Zyrtec -] 10 mg PO PRN PRN 07/15/18 Dexlansoprazole [Dexilant] 60 mg PO DAILY 07/15/18 Ferrous Sulfate [Iron] 325 mg PO DAILY 07/15/18 Anemia: Yes Asthma: Yes (NO RECENT ATTACK) Cancer: No Cardiac Disorders: No CVA: No COPD: No CHF: No Dementia: No Diabetes: No GI Disorders: Yes (PANCREATITIS) Disorders: No HTN: No Hypercholesterolemia: Yes Liver Disease: No Seizures: No Thyroid Disease: No - Surgical History Abdominal Surgery: Yes (Gastric Sleeve . Stomach hematoma) Appendectomy: No Cardiac Surgery: No Cholecystectomy: Yes (08/15) Lung Surgery: No Neurologic Surgery: No Orthopedic Surgery: No - Immunization History Immunization Up to Date: Yes - Suicide/Smoking/Psychosocial Hx Smoking Status: No Smoking History: Never smoked Have you smoked in the past 12 months: No Number of Cigarettes Smoked Daily: 0 Hx Alcohol Use: Yes (socially) Drug/Substance Use Hx: No Substance Use Type: None Hx Substance Use Treatment: No Review of Systems - Review of Systems Constitutional: Yes: Fever Respiratory: No: Shortness of Breath Cardiac (ROS): No: Chest Pain ABD/GI: Yes: Diarrhea, Nausea, Vomiting. No: Blood Streaked Bowels, Constipated , Rectal Bleeding : No: Burning, Dysuria, Discharge, Hematuria Musculoskeletal: Yes: Back Pain Neurological: No: Numbness, Tingling, Weakness *Physical Exam - Vital Signs Last Vital Signs Temp Pulse Resp BP Pulse Ox 98.6 F 104 H 20 145/100 96 08/28/18 14:47 08/28/18 14:47 08/28/18 14:47 08/28/18 14:47 08/28/18 14:47 - Physical Exam General Appearance: Yes: Appropriately Dressed, Mild Distress HEENT: positive: Normal Voice Neck: positive: Supple Respiratory/Chest: negative: Respiratory Distress Gastrointestinal/Abdominal: positive: Normal Bowel Sounds, Tender (diffusely), Soft. negative: Distended, Guarding, Rebound Musculoskeletal: positive: Vertebral Tenderness (diffusely). negative: CVA Tenderness Integumentary: positive: Dry, Warm Neurologic: positive: Fully Oriented, Alert, Normal Mood/Affect Moderate Sedation - Procedure Monitoring Vital Signs: Procedure Monitoring Vital Signs Temperature 98.6 F 08/28/18 14:47 Pulse Rate 104 H 08/28/18 14:47 Respiratory Rate 20 08/28/18 14:47 Blood Pressure 145/100 08/28/18 14:47 O2 Sat by Pulse Oximetry (%) 96 08/28/18 14:47 ED Treatment Course - LABORATORY CBC & Chemistry Diagram: 08/28/18 19:00 08/28/18 19:00 - RADIOLOGY Radiology Studies Ordered: Category Date Time Status ABDOMEN & PELVIS CT WITH CONTR [CT] Stat CT Scan 08/28/18 18:39 Ordered Medical Decision Making - Medical Decision Making 08/28/18 18:41 38 yo F, s/p gastric sleeve 2 years ago C/B pancreatitis, s/p antelmo, chronic lower back pain w/ minimal levoscoliosis to lumbar lordosis on MRI in 2017, f/u with insurance claims specialist, s/p "facet injection" 2 weeks ago, here with multiple complaints. Patient states since her facet injection 2 weeks ago, has had severe burning pain to back diffusely and at some point developed similar pain diffusely to abdomen. Patient describes abdominal pain as "someone hitting me" per patient. States she does not know if her back pain is radiating to her abdomen or if her abdominal pain is radiating to her back. Also complaining of intermittent nausea and vomiting and had a fever for 100.6 last night. Possible several diarrheal episodes, but not consistent per patient. No hematochezia, melena, dysuria, hematuria or vaginal discharge. No h/o renal stone. She states she was seen by her GI doctor, Dr. Fine 2 days ago and after examination, states M.D. told her she had "inflammation" and prescribed her an antibiotics but states she has not been able to sisal picker medication as of yet as her pharmacy is waiting until Thursday to contact patient's insurance for approval See exam Abd/back pain Stable w/ poorly localized ttp to abd and back on exam R/o recurrent pancreatitis vs SBO (given multiple abd surg though unlikely given +BM and flatus), s/p antelmo, unlikely renal stone/uti, low suspicion for appy -pain control -IVF -labs -CT -dispo pending 08/28/18 19:21 Pt states she is not allergic to toradol and has in fact been given meds multiple times with no adverse reaction. States her surgeon told her she should not have NSAIDs by mouth given prior GI surgery. Pt signed out at this time to Dr Lakhani pending w/u *DC/Admit/Observation/Transfer - Referrals Referrals: Slim Marie MD [Primary Care Provider] - - Patient Instructions - Post Discharge Activity
[2018-08-28] MEDS ORDERED: SODIUM CHLORIDE 1,000 ML IV STA (19:14)
[2018-08-28] MEDS ORDERED: KETOROLAC TROMETHAMINE 30 MG/1 ML VIAL ONE (19:20)
[2018-08-28] MEDS ORDERED: KETOROLAC TROMETHAMINE 30 MG/1 ML VIAL IM ONE (19:20)
[2018-08-28 19:23] LABS: BASO % 0.8 % (0-2.0); EOS % 0.8 % (0-4.5); HEMATOCRIT 36.2 % (32.4-45.2); HEMOGLOBIN 12.9 GM/dL (10.7-15.3); LYMPH % 29.6 % (8-40); MCH 31.1 pg (25.7-33.7); MCHC 35.5 g/dl (32.0-36.0); MEAN CELL VOLUME 87.5 fl (80-96); MEAN PLT VOLUME 7.9 fl (7.5-11.1); MONO % 7.3 % (3.8-10.2); NEUT % 61.5 % (42.8-82.8); PLATELET COUNT 427 K/MM3 (134-434); RBC 4.14 M/mm3 (3.60-5.2); RDW 13.2 % (11.6-15.6); WHITE BLOOD COUNT 9.4 K/mm3 (4.0-10.0)
[2018-08-28 19:49] LABS: ALK PHOS 68 U/L (45-117); ANION GAP 5 MMOL/L (8-16); BILIRUBIN,TOTAL 0.2 mg/dL (0.2-1); BLOOD UREA NITROGEN 9 mg/dL (7-18); CALCIUM 8.4 mg/dL (8.5-10.1); CHLORIDE 105 mmol/L (98-107); CO2 29 mmol/L (21-32); CREATININE 0.7 mg/dL (0.55-1.3); GLUCOSE,RANDOM 85 mg/dL (74-106); POTASSIUM 4.2 mmol/L (3.5-5.1); SGOT/AST 14 U/L (15-37); SGPT/ALT 22 U/L (13-61); SODIUM 139 mmol/L (136-145); TOT PROT 7.5 g/dl (6.4-8.2)
--- NOTE | 2018-08-28 20:26 | PDOC ---
Attending Attestation - HPI HPI: 08/29/18 02:20 The patient is a 38 year old female, with a significant past medical history of s/p gastric sleeve 2 years ago C/B pancreatitis, s/p antelmo, chronic lower back pain w/ minimal levoscoliosis to lumbar lordosis on MRI in 2017, f/u with donor services specialist, s/p "facet injection" 2 weeks ago, who presents to the emergency department with, diffuse back pain and burning abdominal pain. Patient notes seeing her GI specialist Dr. Fine who was planning to put her on unknown antibiotics for stomach inflammation. She notes due to unknown insurance reasons she was unable to obtain the prescriptions. She denies recent fevers, chills, headache or dizziness. She denies recent nausea, vomit, diarrhea or constipation. She denies recent dysuria, frequency, urgency or hematuria. She denies recent chest pain or shortness of breath. Primary Care Physician: Dr. Marie GI: Dr. Fine <Erick Contreras - Last Filed: 08/29/18 02:20> - Resident Resident Name: Michelle Lakhani - ED Attending Attestation I have performed the following: I have examined & evaluated the patient, The case was reviewed & discussed with the resident, I agree w/resident's findings & plan - Physicial Exam PE: 08/29/18 22:55 Agree with resident exam. Pt has no abd pain at this time. Guarding at the LLQ , but no rebound. - Medical Decision Making 08/29/18 22:[address] Fine, who agrees that pt can be started on flagyl x 2 weeks. She has normal labs, and Urinalysis and exam and vitals. <Melodie Alonzo - Last Filed: 08/29/18 22:56> Attestations - Attestations 08/29/18 02:20 Documentation prepared by Erick Contreras, acting as medical receptionist for Melodie Alonzo MD. <Erick Contreras - Last Filed: 08/29/18 02:20>
[2018-08-28 20:35] LABS: URINE APPEARANCE CLEAR; URINE BILIRUBIN NEGATIVE (<2.0 mg/dL); URINE COLOR LTYELLOW; URINE GLUCOSE (UA) NEGATIVE (NEGATIVE); URINE KETONE NEGATIVE (NEGATIVE); URINE LEUK ESTERASE NEGATIVE (NEGATIVE); URINE NITRITE NEGATIVE (NEGATIVE); URINE PROTEIN NEGATIVE (NEGATIVE); URINE UROBILINOGEN NEGATIVE mg/dL (0.2-1.0)
[2018-08-28 20:36] LABS: HCG,QUALITATIVE URINE Negative
--- NOTE | 2018-08-28 21:07 | PDOC ---
*Physical Exam - Vital Signs Last Vital Signs Temp Pulse Resp BP Pulse Ox 98.6 F 104 H 20 145/100 96 08/28/18 14:47 08/28/18 14:47 08/28/18 14:47 08/28/18 14:47 08/28/18 14:47 ED Treatment Course - LABORATORY CBC & Chemistry Diagram: 08/28/18 19:00 08/28/18 19:00 - ADDITIONAL ORDERS Additional order review: Laboratory Results 08/28/18 08/28/18 19:00 18:42 Sodium 139 Potassium 4.2 Chloride 105 Carbon Dioxide 29 Anion Gap 5 L BUN 9 Creatinine 0.7 Creat Clearance w eGFR > 60 Random Glucose 85 Calcium 8.4 L Total Bilirubin 0.2 AST 14 L ALT 22 Alkaline Phosphatase 68 Total Protein 7.5 Albumin 4.0 Urine Color Ltyellow Urine Appearance Clear Urine pH 7.0 Ur Specific [place] 1.019 Urine Protein Negative Urine Glucose (UA) Negative Urine Ketones Negative Urine Blood Negative Urine Nitrite Negative Urine Bilirubin Negative Urine Urobilinogen Negative Ur Leukocyte Esterase Negative Urine HCG, Qual Negative 08/28/18 19:00 RBC 4.14 MCV 87.5 MCHC 35.5 RDW 13.2 MPV 7.9 Neutrophils % 61.5 Lymphocytes % 29.6 Monocytes % 7.3 Eosinophils % 0.8 Basophils % 0.8 - Medications Given in the ED: ED Medications Discontinued Medications Generic Name Dose Route Start Last Admin Trade Name Freq PRN Reason Stop Dose Admin Sodium Chloride 1,000 mls @ 1,000 mls/hr 08/28/18 19:14 08/28/18 19:24 Normal Saline - IV 08/28/18 20:13 1,000 mls/hr ASDIR STA Administration Ketorolac Tromethamine 30 mg 08/28/18 19:20 08/28/18 19:25 Toradol Injection - IM 08/28/18 19:21 30 mg ONCE ONE Administration Morphine Sulfate 4 mg 08/28/18 18:39 08/28/18 20:30 Morphine Injection - IVPUSH 08/28/18 18:40 Not Given ONCE ONE Medical Decision Making - Medical Decision Making 08/28/18 21:07 Patient signed out by REAGAN Gould. In short patient history of pancreatitis and gastric lap band, receiving facet injection for scoliosis and reports burning pain the back spreading to the abdomen over the course of 2 weeks. Pain described as "someone hitting me". Patient with low grade fever and with intermittent nausea and vomiting and possible diarrhea. Denies pain ripping or tearing into the back. Patient's pain nondermatomal and no skin changes noted. ED Course: Pending PO+IV Abdpelvic CT. Consider pancreatitis vs colitis vs shingles Labwork unremarkable. Urine unremarkable, Upreg unremarkable. 08/29/18 01:57 Discussed with Rody. Recommends flagyl course and follow up with Dr. Fine in clinic. Patient stable for discharge. Informed of all lab and imaging results. Given follow up instructions and strict return precautions. Patient expressed understanding and agree to plan. *DC/Admit/Observation/Transfer Diagnosis at time of Disposition: Abdominal pain, Back pain - Discharge Dispostion Disposition: HOME Condition at time of disposition: Stable Decision to Admit order: No - Referrals Referrals: Slim Marie MD [Primary Care Provider] - Juan Alberto Fine MD [Staff Physician] - - Patient Instructions Printed Discharge Instructions: DI for Low Back Pain, DI for Abdominal Pain- Adult Additional Instructions: You were seen in the ED for complaints of abdominal pain. In the ED you were evaluated with labwork and imaging. There does not appear to be an acute need for immediate hospitalization. You are advised to follow up with your Primary Care Physician within 1 week. You were given a prescription for antibiotics please take as directed. Return to the ED immediately if you experience worsening back or abdominal pain , fever, nausea, vomiting, chest pain or shortness of breath. - Post Discharge Activity
[2018-08-29] MEDS ORDERED: ACETAMINOPHEN 500 MG TABLET (FP) PO ONE (01:55)
[2018-08-29] MEDS ORDERED: metroNIDAZOLE 500 MG TABLET PO ONE (01:56)
[2018-08-29] MEDS ORDERED: metroNIDAZOLE 250 MG TABLET ONE (02:19)
[2018-08-29 11:01] LABS: LIPASE 142 U/L (73-393)
== END 2018-08-29 02:28 | disposition home or self-care (01) ==
LOC: JER 14:44
PROC: 3E0337Z Introduction of Electrolytic and Water Balance Substance into Peripheral Vein, Percutaneous Approach (ICD-10-PCS; principal; 2018-08-28)
PROC: 3E0233Z Introduction of Anti-inflammatory into Muscle, Percutaneous Approach (ICD-10-PCS; 2018-08-28)
DX: R10.84 Generalized abdominal pain (principal); K86.1 Other chronic pancreatitis; D64.9 Anemia, unspecified; J45.909 Unspecified asthma, uncomplicated
CPT/HCPCS: 36415; 74177-TC; 80053; 81003; 83690; 84703; 85025; 87086; 99282-25; J7030

== ENCOUNTER 2018-09-16 17:08 | Emergency (ER) | payer OTHER ==
[2018-09-16 17:34] VITALS: BP 136/95; PULSE 89; TEMP 98.6; BMI 31.5
--- NOTE | 2018-09-16 17:57 | PDOC ---
History of Present Illness - General Chief Complaint: Urinary Problem Stated Complaint: BLOOD IN URINE AND FOUL ODOR Time Seen by Provider: 09/16/18 17:51 History Source: Patient Exam Limitations: No Limitations - History of Present Illness Travel History: No Initial Comments: 09/16/18 17:56 38y F hx of gastric sleeve (2016), cholecystectomy, pancreatitis, was seen by Dr. Lema as an outpatient for evaluation of burning back pain and had a urine that showed hematuria. The patient was in the ED recently for evaluation of abodminal pain and burning back pain, had blood work, urine, and CT abd that was negative. Was d/c w flagyl on recommendation of GI. Eagan better for a few days. She snotse increased back burning and strong smelling urine for epa 4 days. no associaed fever/chills, n/v, cp, sob, cough. Pt nots mild suprapubic pain as well. denies vag bleeding, diarrhea, melena bpr, vag discharge. sexually active in a monogamous relationship Past History - Past Medical History Allergies/Adverse Reactions: Allergies Allergy/AdvReac Type Severity Reaction Status Date / Time egg Allergy Severe Itching Verified 09/16/18 17:36 peanut Allergy Severe ANAPHYLAXIS Verified 09/16/18 17:37 shellfish derived Allergy Severe ANAPHYLAXIS Verified 09/16/18 17:38 tree nut Allergy Severe Difficulty Verified 09/16/18 17:35 Breathing almond oil Allergy Unknown Verified 09/16/18 17:11 apple Allergy Unknown Itching Verified 09/16/18 17:36 banana Allergy Unknown Itching Verified 09/16/18 17:37 melon Allergy Unknown Verified 09/16/18 17:37 sesame seed Allergy Unknown Hives Verified 09/16/18 17:37 strawberry Allergy Unknown Itching Verified 09/16/18 17:38 tomato Allergy Unknown Verified 09/16/18 17:37 wheat Allergy Unknown Verified 09/16/18 17:36 NSAIDS (Non-Steroidal AdvReac Severe Verified 09/16/18 17:10 Anti-Inflamma jimenez Allergy Intermediate Itching Uncoded 09/16/18 17:39 Home Medications: Ambulatory Orders Dexlansoprazole [Dexilant] 1 cap PO DAILY 09/16/18 Diphenhydramine HCl [Benadryl Capsule -] 1 cap PO HS 09/16/18 Rifaximin [Xifaxan] 550 mg PO TID 09/16/18 levoFLOXacin [Levaquin] 750 mg PO DAILY #4 tab 09/16/18 Anemia: Yes Asthma: Yes (NO RECENT ATTACK) Cancer: No Cardiac Disorders: No CVA: No COPD: No CHF: No Dementia: No Diabetes: No GI Disorders: Yes (PANCREATITIS COLITIS) Disorders: No HTN: No Hypercholesterolemia: Yes Liver Disease: No Seizures: No Thyroid Disease: No Other medical history: KIDNEY INFECTION - Surgical History Abdominal Surgery: Yes (Gastric Sleeve . Stomach hematoma) Appendectomy: No Cardiac Surgery: No Cholecystectomy: Yes (08/15) Lung Surgery: No Neurologic Surgery: No Orthopedic Surgery: No - Immunization History Immunization Up to Date: Yes - Suicide/Smoking/Psychosocial Hx Smoking Status: No Smoking History: Never smoked Have you smoked in the past 12 months: No Number of Cigarettes Smoked Daily: 0 Information on smoking cessation initiated: No Hx Alcohol Use: No Drug/Substance Use Hx: No Substance Use Type: None Hx Substance Use Treatment: No Review of Systems - Review of Systems Able to Perform ROS?: Yes Comments:: 09/16/18 18:33 Constitutional - no reported Fever, Chills, HEENT: no reported vision changes, sore throat Respiratory: no reported cough, sob, hemoptysis Cardiac: no reported chest pain, palpitations, light headedness, leg swelling Abd/GI: +burning back pain, no reported abd pain, nausea, vomiting, blood per rectum, melena, diarrhea : +foul smelling urine no reported dysuria, frequency, discharge Musculskelatal - no reported back pain, joint swelling skin - no reported bruising, erythema, rash neurological: no reported headache, numbness, focal weakness, tingling, ataxia, hematologic: no reported easy bruising, easy bleeding *Physical Exam - Vital Signs Last Vital Signs Temp Pulse Resp BP Pulse Ox 98.6 F 89 16 136/95 100 09/16/18 17:10 09/16/18 17:10 09/16/18 17:10 09/16/18 17:10 09/16/18 17:10 - Physical Exam Comments: 09/16/18 18:34 GENERAL: The patient is awake, alert, and fully oriented, Nontoxic - in no acute distress. HEAD: Normocephalic, atraumatic. EYES: extraocular movements intact, sclera anicteric, conjunctiva clear. ENT: Normal voice, Moist mucous membranes. NECK: Normal range of motion, supple LUNGS: Breath sounds equal, clear to auscultation bilaterally. No wheezes, no rhonchi, no rales. HEART: Regular rate and rhythm, normal S1 and S2 without murmur, rub or gallop. ABDOMEN: Soft, mild suprapubic tenderness, No guarding, no rebound. No CVA tenderness EXTREMITIES: Normal range of motion, no edema. No clubbing or cyanosis. No cords, erythema, or tenderness. NEUROLOGICAL: No facial assymetry, Normal speech, PSYCH: Normal mood, normal affect. SKIN: Warm, Dry, normal turgor, no rashes appreciated on back or abdomen Moderate Sedation - Procedure Monitoring Vital Signs: Procedure Monitoring Vital Signs Temperature 98.6 F 09/16/18 17:10 Pulse Rate 89 09/16/18 17:10 Respiratory Rate 16 09/16/18 17:10 Blood Pressure 136/95 09/16/18 17:10 O2 Sat by Pulse Oximetry (%) 100 09/16/18 17:10 Medical Decision Making - Medical Decision Making 09/16/18 18:36 pts urine suggestive of UTI with bacteria +1, hematuria no true cva tenderness,no fever, but will give pt levaquin daily for 7 days for possible pyelo urine cx sent will send GC as well will have pt fu with pmd fur further evaluation return precautions were discussed including fevers/vomiting or other concerns. I discussed the physical exam findings, ancillary test results and final diagnoses with the patient. I answered all of the patient's questions. The patient was satisfied with the care received and felt comfortable with the discharge plan and treatment plan. The patient will call their primary care physician within 24 hours to arrange follow-up and will return to the Emergency Department with any new, persistent or worsening symptoms. *DC/Admit/Observation/Transfer Diagnosis at time of Disposition: UTI (urinary tract infection) Qualifiers: Urinary tract infection type: site unspecified Hematuria presence: with hematuria Qualified Code(s): N39.0 - Urinary tract infection, site not specified - Discharge Dispostion Disposition: HOME Condition at time of disposition: Improved Decision to Admit order: No - Prescriptions Prescriptions: levoFLOXacin [Levaquin] 750 mg PO DAILY #5 tab - Referrals Referrals: Almaz Lema MD [Provisional Medical Staff] - - Patient Instructions Printed Discharge Instructions: DI for Urinary Tract Infection (UTI) Additional Instructions: I suspect that you're symptoms may be due to a urinary infection. I will start you on antibiotic please complete the course of antibiotics. If you have any fevers, you're vomiting yesterday abdominal pain please come back to the emergency room for further evaluation. Print Language: COMORAN - Post Discharge Activity
[2018-09-16 18:02] LABS: HCG,QUALITATIVE URINE Negative
[2018-09-16 18:04] LABS: PH,URINE 6.5 (4.5-8); URINE APPEARANCE Clear; URINE BILIRUBIN Negative (NEGATIVE); URINE COLOR Yellow; URINE GLUCOSE (UA) Negative (NEGATIVE); URINE KETONE Trace (NEGATIVE); URINE LEUK ESTERASE Negative (NEGATIVE); URINE NITRITE Negative (NEGATIVE); URINE PROTEIN Negative (NEGATIVE); URINE UROBILINOGEN 0.2 (0.2-1.0)
[2018-09-16 18:20] LABS: EPI CELLS 1+ /HPF; URINE BACTERIA 1+ /hpf (NEGATIVE); URINE WBC 0-2 (0-5)
[2018-09-16] MEDS ORDERED: traMADol HCL 50 MG TABLET PO ONE (18:26)
[2018-09-16] MEDS ORDERED: traMADol HCL 50 MG TABLET ONE (19:00)
--- NOTE | 2018-09-19 09:29 | PDOC ---
Patient Follow-up (Call Back) - Post ED Follow - Up Condition at time of discharge: Improved Disposition at time of original discharge: HOME Reason for Call Back: Abnwl. Microbiology (urine culture prelim with 80-90k GNR , already on levaquin, will write follow up order for SENIOR [employer]ERGY MARKET COORDINATOR to check sensitivity to levaquin) - Disposition Rx Needed: No (already on Levaquin)
--- NOTE | 2018-09-19 09:30 | PDOC ---
*Physical Exam - Vital Signs Last Vital Signs Temp Pulse Resp BP Pulse Ox 98.6 F 89 16 136/95 100 09/16/18 17:10 09/16/18 17:10 09/16/18 17:10 09/16/18 17:10 09/16/18 17:10 ED Treatment Course - ADDITIONAL ORDERS Additional order review: 09/16/18 18:25 Urine Culture - Preliminary Urine - Urine Clean Catch Lactose Fermenting Neg Bacilli - Medications Given in the ED: ED Medications Discontinued Medications Generic Name Dose Route Start Last Admin Trade Name Saba PRN Reason Stop Dose Admin Levofloxacin 750 mg 09/16/18 18:48 09/16/18 18:59 Levaquin - PO 09/16/18 18:49 750 mg ONCE ONE Administration Tramadol HCl 50 mg 09/16/18 18:26 09/16/18 18:59 Ultram - PO 09/16/18 18:27 50 mg ONCE ONE Administration *DC/Admit/Observation/Transfer Diagnosis at time of Disposition: UTI (urinary tract infection) Qualifiers: Urinary tract infection type: site unspecified Hematuria presence: with hematuria Qualified Code(s): N39.0 - Urinary tract infection, site not specified - Discharge Dispostion Disposition: HOME Condition at time of disposition: Improved - Prescriptions Prescriptions: levoFLOXacin [Levaquin] 750 mg PO DAILY #4 tab - Referrals Schedule a call back: positive GNR urine, already on Levaquin, check sens Referrals: Almaz Lema MD [Provisional Medical Staff] - - Patient Instructions Printed Discharge Instructions: DI for Urinary Tract Infection (UTI) Additional Instructions: I suspect that you're symptoms may be due to a urinary infection. I will start you on antibiotic please complete the course of antibiotics. If you have any fevers, you're vomiting yesterday abdominal pain please come back to the emergency room for further evaluation. Print Language: PERSIAN - Post Discharge Activity
== END 2018-09-16 19:12 | disposition home or self-care (01) ==
LOC: FER 17:08
DX: N39.0 Urinary tract infection, site not specified (principal)
CPT/HCPCS: 36415; 81003; 81015; 84703; 87086; 87186; 87491; 87591; 99282-25